=== PATIENT | male | born 1990 | race Caucasian/White ===

== ENCOUNTER 2019-04-08 13:35 | Emergency (ER) | payer MEDICAID ==
[~2019-04-08] VITALS: Ht 175.3 cm; Wt 65.9 kg
[~2019-04-08 13:35] MED LIST: HYDR-4383 PO; ONDA4TAB6 PO; VALA100027 PO
[2019-04-08 14:14] VITALS: BP 132/90
== END 2019-04-08 14:54 | disposition home or self-care (01) ==
LOC: ER 13:36
DX: F11.20 Opioid dependence, uncomplicated (principal); F15.90 Other stimulant use, unspecified, uncomplicated; Z56.0 Unemployment, unspecified; Z88.1 Allergy status to other antibiotic agents; Z79.899 Other long term (current) drug therapy
CPT/HCPCS: 99281

== ENCOUNTER 2020-06-09 18:37 | Emergency (ER) | payer MEDICAID ==
[~2020-06-09] VITALS: Ht 175.3 cm; Wt 62.8 kg
[~2020-06-09 18:37] MED LIST changes: -VALA100027 PO; +VALA100031 PO
[2020-06-09 18:49] VITALS: BP 129/81
[2020-06-09] MEDS ORDERED: LIDOcaine 1% W/epiNEPHrine 1:200,000 10ml vial IJ ONE (20:20)
[2020-06-09] MEDS ORDERED: normal saline 1000ml 1,000 ML IV ONE (20:20)
[2020-06-09] MEDS ORDERED: TETanus/Pertussis (Acell)/Diphther VAC/PF (Tdap-Adult) 0.5ml syringe IMVAC ONE (20:20)
[2020-06-09 20:40] LABS: CLARITY,URINE CLEAR (Clear); COLOR,URINE YELLOW (Yellow); GLUCOSE, URINE NEGATIVE (Neg); KETONES,URINE 15 mg/dl (Neg); LEUKOCYTE ESTERASE ,URINE NEGATIVE (Neg); NITRITES, URINE NEGATIVE (Neg); OCCULT BLOOD,URINE NEGATIVE (Neg); PROTEIN,URINE TRACE mg/dl (Neg)
[2020-06-09 20:47] LABS: UA COLLECTION TYPE CLN CATCH MIDSTREAM
[2020-06-09 20:48] LABS: BACTERIA,URINE FEW /HPF (Neg); MUCUS STRANDS FEW /LPF (Neg); RBC,URINE NONE SEEN /HPF (0-2); SQUAMOUS EPITHELIAL CELL,UR FEW /LPF (FEW); WBC,URINE 0-4 /HPF (0-4)
[2020-06-09 20:52] LABS: URINE AMPHETAMINE SCREEN POSITIVE (Neg); URINE BARBITUATE SCREEN NEGATIVE (Neg); URINE BENZODIAZEPINES SCREEN NEGATIVE (Neg); URINE CANNABINOID SCREEN POSITIVE (Neg); URINE COCAINE SCREEN NEGATIVE (Neg); URINE METHADONE SCREEN POSITIVE (Neg); URINE OPIATE SCREEN POSITIVE (Neg); URINE PHENCYCLIDINE SCREEN NEGATIVE (Neg)
[2020-06-09 21:10] LABS: BASOPHILS % (AUTO) 0.3 % (0-1); EOSINOPHILS % (AUTO) 0.1 % (0-6); HEMOGLOBIN 11.8 g/dl (14.0-17.9); LYMPHOCYTES # (AUTO) 2.2 X10'3 (1.1-4.8); LYMPHOCYTES % (AUTO) 16.3 % (21-51); MEAN CORPUSCULAR HEMOGLOBIN 28.1 PG (27.0-31.0); MEAN CORPUSCULAR HGB CONC 32.9 g/dL (33.0-36.5); MEAN CORPUSCULAR VOLUME 85.5 FL (78-98); MEAN PLATELET VOLUME 9.1 FL (7.4-10.4); MONOCYTES # (AUTO) 1.4 X10'3 (0-0.9); MONOCYTES % (AUTO) 10.6 % (2-12); NEUTROPHILS # (AUTO) 9.9 X10'3 (1.8-7.7); NEUTROPHILS % (AUTO) 72.7 % (42-75); PLATELET COUNT 257 X10'3 (140-440); RED CELL DISTRIBUTION WIDTH 14.5 % (11.5-14.5); WHITE BLOOD COUNT 13.7 X10'3 (4.5-11.0)
[2020-06-09 21:27] LABS: ALANINE AMINOTRANSFERASE 36 U/L (12-78); ALBUMIN 3.6 G/DL (3.4-5.0); ALBUMIN/GLOBULIN RATIO 0.6 (1.1-1.5); ALKALINE PHOSPHATASE 105 IU/L (46-116); ANION GAP 6 (8-16); ASPARTATE AMINO TRANSFERASE 28 U/L (10-37); BILIRUBIN,TOTAL 0.5 MG/DL (0.1-1.0); BLOOD UREA NITROGEN 10 MG/DL (7-18); BUN/CREATININE RATIO 9.1 (5.4-32.0); CALCIUM 9.6 MG/DL (8.5-10.1); CHLORIDE 96 MMOL/L (99-107); GLUCOSE 107 MG/DL (70-104); POTASSIUM 3.7 MMOL/L (3.5-5.1); SODIUM 133 MMOL/L (135-145); TOTAL CARBON DIOXIDE 30.7 MMOL/L (24-32); TOTAL PROTEIN 9.2 G/DL (6.4-8.2); eGFR 79 ML/MIN
[2020-06-09] MEDS ORDERED: iohexol 300mg/ml 100ml inj. ONE (21:38)
[2020-06-09] MEDS ORDERED: CefTRIAXone 2gm/D5W 50ml BAG 50 ML IV ONE (22:20)
[2020-06-09] MEDS ORDERED: SULF1TAB49 PO (22:27)
[2020-06-09] MEDS ORDERED: CEPH250T PO (22:27)
== END 2020-06-09 23:13 | disposition home or self-care (01) ==
LOC: ER 18:45
DX: L02.413 Cutaneous abscess of right upper limb (principal); L03.113 Cellulitis of right upper limb; F15.90 Other stimulant use, unspecified, uncomplicated; F11.90 Opioid use, unspecified, uncomplicated; Z20.3 Contact with and (suspected) exposure to rabies; Z56.0 Unemployment, unspecified; Z88.1 Allergy status to other antibiotic agents; Z79.2 Long term (current) use of antibiotics; Z79.899 Other long term (current) drug therapy
CPT/HCPCS: 10060; 36415; 73201; 80053; 80305; 81001; 83605; 84145; 85025; 87040; 87070; 87077; 87186; 90471; 90715; 96361; 96365; 99285; J0696; J7030; Q9967; 73200; 74176

== ENCOUNTER 2020-10-30 21:12 | Emergency (ER) | payer MEDICAID ==
[~2020-10-30] VITALS: Ht 175.3 cm; Wt 68.2 kg
[2020-10-30] MEDS ORDERED: BUPR1FIL3 SL (23:42)
--- NOTE | 2020-10-31 00:30 | NUR ---
PT LEFT UNIT WITH OUT PRESCRIPTION PHONED THE NEXT OF KIN - PT TAB WHO STATED SHE WOULD TEXT HER GRANDSON AND TELL HIM TO RETURN TO THE ER TO GET HIS PRESCRIPTION GRANDMA REFUSED TO GIVE STAFF PT TIFFANYME NUMBER SO WE COULD CALL OURSELF
[2020-10-31 01:01] VITALS: BP 135/62
== END 2020-10-31 00:30 | disposition home or self-care (01) ==
LOC: ER 21:13
DX: F19.10 Other psychoactive substance abuse, uncomplicated (principal); F17.200 Nicotine dependence, unspecified, uncomplicated; F12.90 Cannabis use, unspecified, uncomplicated; F15.90 Other stimulant use, unspecified, uncomplicated; F11.90 Opioid use, unspecified, uncomplicated; Z72.89 Other problems related to lifestyle; Z56.0 Unemployment, unspecified; Z88.1 Allergy status to other antibiotic agents; Z79.2 Long term (current) use of antibiotics; Z79.899 Other long term (current) drug therapy
CPT/HCPCS: 99283